=== PATIENT | male | born 1950 | race Caucasian/White ===

== ENCOUNTER → 2020-07-01 09:00 | Outpatient (BNVA) | payer MEDICARE, SELFPAY | PROVIDERS: Visit Provider Nurse Practitioner Family | DX: M10.9 Gout, unspecified (principal); M79.674 Pain in right toe(s); Z68.31 Body mass index [BMI] 31.0-31.9, adult; R03.0 Elevated blood-pressure reading, without diagnosis of hypertension | CPT/HCPCS: 84550 ==